=== PATIENT | female | born 1980 ===

== ENCOUNTER 2018-10-11 17:23 | Outpatient (CLI) | payer OTHER | END 2018-10-11 17:45 | disposition home or self-care (01) | LOC: NST 17:23 | DX: Z34.83 Encounter for supervision of other normal pregnancy, third trimester (principal) ==

== ENCOUNTER → 2018-10-18 | Outpatient (CLI) | payer OTHER | END | disposition home or self-care (01) | LOC: NST 15:18 | DX: Z34.83 Encounter for supervision of other normal pregnancy, third trimester (principal) ==

== ENCOUNTER 2018-10-23 16:33 | Inpatient (IN) | payer OTHER ==
[~2018-10-23] VITALS: Ht 167.6 cm; Wt 64.4 kg
[2018-10-29] MEDS ORDERED: PRENATAL FORMU1 EAC1 PO (02:14)
[2018-10-29] MEDS ORDERED: IRON325 MG PO (02:14)
== END 2018-10-31 10:44 | disposition home or self-care (01) | DRG 797 ==
LOC: OB/GYN 10-25 16:31 → LDR 10-29 00:47 → OB/GYN 10-29 00:53
PROVIDERS: ADMIT Obstetrics & Gynecology Maternal & Fetal Medicine
PROC: 10D17ZZ Extraction of Products of Conception, Retained, Via Natural or Artificial Opening (ICD-10-PCS; principal; 2018-10-29)
PROC: 10E0XZZ Delivery of Products of Conception, External Approach (ICD-10-PCS; 2018-10-29)
PROC: 0KQM0ZZ Repair Perineum Muscle, Open Approach (ICD-10-PCS; 2018-10-29)
PROC: 0W8NXZZ Division of Female Perineum, External Approach (ICD-10-PCS; 2018-10-29)
PROC: 4A1HXCZ Monitoring of Products of Conception, Cardiac Rate, External Approach (ICD-10-PCS; 2018-10-29)
PROC: 4A033R1 Measurement of Arterial Saturation, Peripheral, Percutaneous Approach (ICD-10-PCS; 2018-10-29)
DX: O70.1 Second degree perineal laceration during delivery (principal); O72.2 Delayed and secondary postpartum hemorrhage; Z37.9 Outcome of delivery, unspecified; Z3A.40 40 weeks gestation of pregnancy

== ENCOUNTER → 2018-10-28 | Outpatient (CLI) | payer OTHER ==
[~2018-10-28] MED LIST: IRON325 MG PO; PRENATAL FORMU1 EAC1 PO
== END | disposition home or self-care (01) ==
LOC: NST 15:33
DX: Z34.83 Encounter for supervision of other normal pregnancy, third trimester (principal)